=== PATIENT | female | born 1995 | race Caucasian/White ===

== ENCOUNTER 2023-10-13 23:06 | Inpatient (IN) | payer SELFPAY ==
[~2023-10-13] VITALS: Ht 170.2 cm; Wt 84.6 kg
[2023-10-13 23:31] VITALS: BP 128/71
[2023-10-14] VITALS (9 sets, daily range): BP systolic 98–125; BP diastolic 54–77; O2SAT 17–100
[2023-10-14] MEDS ORDERED: ceFAZolin 2 GM/D5W 50 ML IV BAG As Ordered ONE (00:04)
[2023-10-14] MEDS ORDERED: SUCCINYLCHOLINE 100MG/5ML SYRINGE As Ordered ONE (00:09)
[2023-10-14] MEDS ORDERED: propofoL 200 MG/20 ML VIAL As Ordered ONE (00:09)
[2023-10-14] MEDS ORDERED: KETOROLAC 60MG 2ML VIAL As Ordered ONE (00:09)
[2023-10-14] MEDS ORDERED: fentaNYL 100 MCG/2 ML INJECTION As Ordered ONE (00:09)
[2023-10-14] MEDS ORDERED: ONDANSETRON 4MG 2ML VIAL As Ordered ONE (00:09)
[2023-10-14 00:14] LABS: CORD GAS ABE A -6.5; CORD GAS HCO3 A 19.6 MMOL/L; CORD GAS O2 SAT A 84.2 %; CORD GAS PCO2 A 41.5 mmHg; CORD GAS PH A 7.293 UNITS; CORD GAS SBC A 18.9 MMOL/L; CORD GAS TCO2 A 20.9 MMOL/L
[2023-10-14 00:15] LABS: CORD GAS ABE V -8.3; CORD GAS HCO3 V 19.5 MMOL/L; CORD GAS O2 SAT V 69.4 %; CORD GAS PH V 7.226 UNITS; CORD GAS PO2 V 32.5 mmHg; CORD GAS SBC V 17.3 MMOL/L; CORD GAS TCO2 V 20.9 MMOL/L
[2023-10-14] MEDS ORDERED: LR 1,000 ML IV SCH (00:15)
[2023-10-14] MEDS ORDERED: oxyCODONE 5MG TAB PO PRN (00:15)
[2023-10-14] MEDS ORDERED: ONDANSETRON 4MG 2ML VIAL IV PRN (00:15)
[2023-10-14] MEDS ORDERED: diphenhydrAMINE 50MG/ML VIAL IV PRN (00:15)
[2023-10-14] MEDS ORDERED: MORPHINE 2 MG/ML 1ML VIAL IV PRN (00:15)
[2023-10-14] MEDS ORDERED: MEPERIDINE 25 MG/ML 1ML VIAL IV PRN (00:15)
[2023-10-14] MEDS ORDERED: UNRESOLVED CLARIFICATION ENTRY XX STA (00:21)
[2023-10-14] MEDS ORDERED: OXYTOCIN INJ 10UNITS/ML 1ML VIAL As Ordered ONE (00:23)
[2023-10-14 00:36] LABS: BASO % 0.4 % (0.0-1.0); EOS # 0.1 10^3/uL (0.0-0.5); EOS % 1.5 % (0.0-3.0); HEMATOCRIT 40.6 % (36.0-47.0); HEMOGLOBIN 13.8 g/dl (12.0-15.5); LYMPH # 2.4 10^3/uL (1.5-5.0); LYMPH % 27.9 % (24.0-44.0); MEAN CORPUSCULAR HEMOGLOBIN 30.1 pg (27.0-33.0); MEAN CORPUSCULAR VOLUME 88.5 fl (80.0-96.0); MONO # 0.7 10^3/uL (0.0-0.8); MONO % 8.7 % (2.0-8.0); NEUTROPHILS # 5.1 10^3/uL (1.5-8.5); NEUTROPHILS % 60.4 % (36.0-66.0); PLATELET COUNT, AUTOMATED 192 10^3/uL (150-450); RED BLOOD COUNT 4.59 10^6/uL (4.00-5.40); WHITE BLOOD COUNT 8.5 10^3/uL (4.0-10.0)
[2023-10-14] MEDS ORDERED: ceFAZolin SOD 2 GM in IV 1 EA IV ONE (01:00)
[2023-10-14] MEDS ORDERED: BICITRA 30ML SOLN UDC PO ONE (01:00)
[2023-10-14] MEDS: LACTATED RINGER'S 1000 ML IV STA (01:00)
[2023-10-14] MEDS: fentaNYL 100 MCG/2 ML INJECTION IV PRN (01:07)
[2023-10-14] MEDS ORDERED: RHOGAM 300MCG (1500IU) INJ IM SCH (01:10)
[2023-10-14] MEDS ORDERED: MOM 30ML SUSPENSION UDC PO PRN (01:10)
[2023-10-14] MEDS: OXYTOCIN DRIP 30 UNITS in IV 1 EA IV SCH (01:10)
[2023-10-14] MEDS: KETOROLAC 30 MG/ML 1ML VIAL IV SCH (06:34)
[2023-10-14] MEDS ORDERED: PERCOCET 5MG/325MG TAB PO PRN (11:15)
[2023-10-14] MEDS: DOCUSATE SODIUM 100MG CAPSULE PO SCH (11:40)
[2023-10-14] MEDS: PRENATAL VITAMINS CHEWABLE TABLET PO SCH (11:40)
[2023-10-15] MEDS: SIMETHICONE 80MG CHEW TAB PO PRN (00:36)
[2023-10-15 02:00] VITALS: BP 115/62; O2SAT 96
[2023-10-15] MEDS: IBUPROFEN 800 MG TAB PO SCH (02:15)
[2023-10-15 06:00] VITALS: BP 101/56; O2SAT 97
[2023-10-15 09:34] LABS: HEMATOCRIT 37.3 % (36.0-47.0); HEMOGLOBIN 12.5 g/dl (12.0-15.5); MEAN CORPUSCULAR HGB CONC 33.5 g/dl (32.0-36.5); MEAN CORPUSCULAR VOLUME 89.7 fl (80.0-96.0); PLATELET COUNT, AUTOMATED 157 10^3/uL (150-450); RED BLOOD COUNT 4.16 10^6/uL (4.00-5.40); WHITE BLOOD COUNT 9.1 10^3/uL (4.0-10.0)
[2023-10-15 10:00] VITALS: BP 118/68; O2SAT 97
[2023-10-15 10:22] VITALS: BP 118/68; TEMP 97.5; O2SAT 97
[2023-10-15] MEDS ORDERED: ACET-683 PO (13:47)
[2023-10-15] MEDS ORDERED: IBUP80TA PO (13:47)
[2023-10-16] MEDS ORDERED: MEASLES,MUMPS,RUBELLA VACCINE INJ (MMR-II) SC.IMMUN ONE (09:00)
== END 2023-10-15 15:20 | disposition home or self-care (01) | DRG 540 ==
LOC: M LDO 23:06 → M LDI 23:45 → M OBS 10-14 02:00
PROVIDERS: ADMIT Obstetrics & Gynecology; ATTEND Obstetrics & Gynecology
PROC: 10D00Z1 Extraction of Products of Conception, Low, Open Approach (ICD-10-PCS; principal; 2023-10-13)
DX: O69.0XX0 Labor and delivery complicated by prolapse of cord, not applicable or unspecified (principal); O32.1XX0 Maternal care for breech presentation, not applicable or unspecified; O09.31 Supervision of pregnancy with insufficient antenatal care, first trimester; Z37.0 Single live birth; O09.32 Supervision of pregnancy with insufficient antenatal care, second trimester; O09.33 Supervision of pregnancy with insufficient antenatal care, third trimester; Z3A.39 39 weeks gestation of pregnancy